=== PATIENT | male | born 1965 | race Two or more races ===

== ENCOUNTER 2019-06-17 08:47 | Day surgery (SDC) | payer OTHER ==
[~2019-06-17] VITALS: Ht 180.3 cm; Wt 99.8 kg
[2019-06-17] MEDS ORDERED: MELO-107 PO (09:48)
[2019-06-17] MEDS ORDERED: GLUC1CAP30 PO (09:48)
[2019-06-17] MEDS ORDERED: ATOR20TA PO (09:48)
[2019-06-17] MEDS ORDERED: PYRI50TA15 PO (09:48)
[2019-06-17] MEDS ORDERED: OLME1TAB19 PO (09:48)
[2019-06-17] MEDS ORDERED: HYDR-4384 PO (09:48)
[2019-06-17] MEDS ORDERED: TIZA4TAB5 PO (09:48)
[2019-06-17] MEDS ORDERED: OMEG1CAP PO (09:48)
[2019-06-17] MEDS ORDERED: LANS30CA56 PO (09:48)
[2019-06-17] MEDS ORDERED: ASPI-605 PO (09:48)
[2019-06-17] MEDS ORDERED: MIDAZOLAM HCL 2 MG/2ML VIAL ONE (11:04)
[2019-06-17] MEDS ORDERED: FENTANYL PF 100MCG/2ML AMPUL ONE (11:05)
[2019-06-17] MEDS ORDERED: SCOPOLAMINE HBR 1 EA PATCH.TD72 TD ONE (11:05)
[2019-06-17] MEDS ORDERED: BUPIVACAINE MPF 0.5% W/EPI INJ 30 ML VIAL ONE (11:17)
[2019-06-17] MEDS ORDERED: EPINEPHRINE (1:1000) 1 MG/ML AMPUL ONE (11:17)
[2019-06-17] MEDS ORDERED: MORPHINE SULFATE/PF 10 MG/10ML (1MG/ML) AMPUL ONE (11:17)
[2019-06-17] MEDS ORDERED: HYDROCODONE/APAP 10/325MG 1 EA TABLET PO PRN (15:00)
[2019-06-17 16:00] VITALS: BP 129/76
== END 2019-06-17 16:00 | disposition home or self-care (01) ==
LOC: DS 08:47 → MED 08:49 → UNDOADMIN 08:49 → DS 16:00 → UNDODISIN 16:33
PROVIDERS: ATTEND Orthopaedic Surgery
DX: M75.41 Impingement syndrome of right shoulder (principal); I10 Essential (primary) hypertension; E78.5 Hyperlipidemia, unspecified; E11.9 Type 2 diabetes mellitus without complications
CPT/HCPCS: 23120; 23410; 29823; 82962; 87081; 88304; 88311; A4217; A4565; J0171; J0690; J1100; J1885; J2250; J2274; J2300; J2704; J3490; G0378; J3010